=== PATIENT | female | born 1990 | race Hispanic/Latino ===

== ENCOUNTER 2017-07-24 12:54 | Emergency (ER) | payer MEDICAID, OTHER ==
[2017-07-24 13:18] VITALS: BP 121/65
--- NOTE | 2017-07-24 14:12 | CR ---
EXAMINATION: Right shoulder HISTORY: Pain COMPARISON: None TECHNIQUE: 3 views FINDINGS/IMPRESSION: There is no acute osseous abnormality, dislocation, or fracture. Joint spaces an d bone mineralization appear normal.
[2017-07-24] MEDS ORDERED: Ketorolac 60 MG/2 ML SDV IM ONE (14:44)
--- NOTE | 2017-07-24 14:46 | EDM.PDOC ---
ED HPI GENERAL MEDICAL PROBLEM - General Chief Complaint: Upper Extremity Injury/Pain Stated Complaint: RIGHT SHOULDER PAIN WORK RELATED Time Seen by Provider: 07/24/17 14:30 Source of Information: Reports: Patient History Limitations: Reports: No Limitations - History of Present Illness INITIAL COMMENTS - FREE TEXT/NARRATIVE: HISTORY AND PHYSICAL: History of present illness: [Patient presents to the emergency room complaining of right shoulder pain. 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 On Sunday night she removed numerous suitcases and bags from the belly of the plane. During this process she felt a snapping and tearing sensation and pain in her right shoulder. She has had continued pain to her right posterior shoulder since Sunday. She has sensation of tightness across the back of her shoulder across her scapula. Has pain and diminished range of motion to her right arm due to shoulder pain. No numbness or tingling. No weakness in her hands. Denies fever and chills no chest pain shortness of breath or difficulty breathing. She has no other complaints or concerns at this time. Hasn't been taking much laor-aat-lumxhti medication for her symptoms. ] Review of systems: As per history of present illness and below otherwise all systems reviewed and negative. Past medical history: As per history of present illness and as reviewed below otherwise noncontributory. Surgical history: As per history of present illness and as reviewed below otherwise noncontributory. Social history: No reported history of drug or alcohol abuse. Family history: As per history of present illness and as reviewed below otherwise noncontributory. Physical exam: HEENT: Atraumatic, normocephalic. Extremities: Right shoulder is unremarkable in appearance. there is no bruising , erythema or swelling. Mildly tender with palpation over the posterior right shoulder. Diminished range of motion and pain with flexion and extension of her right upper extremity. Pain and diminished range of motion with rotation of shoulder. Neurovascular unremarkable. 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 Neurovascular intact. Neuro: Awake, alert, oriented. Cranial nerves II through XII unremarkable. Exam nonfocal. Diagnostics: [R shoulder x-ray] Therapeutics: [Toradol 60mg IM] Impression: [Right shoulder pain] Plan: [Discussed with patient that her right shoulder x-ray is completely normal. Encouraged close orthopedic follow-up. She is given a note recommending she got you with her right arm at work until she has been evaluated by the orthopedist. Tylenol and ibuprofen as needed for discomfort. Strict return precautions are reviewed with the patient she is in agreement with today's plan.] Definitive disposition and diagnosis as appropriate pending reevaluation and review of above. Right Shoulder Pain Score (Numeric/FACES): 7 - Related Data Allergies Allergy/AdvReac Type Severity Reaction Status Date / Time No Known Allergies Allergy Verified 07/24/17 13:17 Home Meds: Home Meds . [No Known Home Meds] 05/04/15 [History] . [No Known Home Meds] 11/02/15 [History] Past Medical History - Past Health History Medical/Surgical History: Denies Medical/Surgical History Other Respiratory History: REports 4 yr history of smoking, currently reporting 5 cigarettes per day Genitourinary History: Reports: UTI, Recurrent Other Genitourinary History: None for awhile, On & Off UTI's SAGGER SOAK History: Reports: None Musculoskeletal History: Reports: None Neurological History: Reports: None Psychiatric History: Reports: Anxiety Endocrine/Metabolic History: Reports: None Hematologic History: Reports: None Immunologic History: Reports: None Oncologic (Cancer) History: Reports: None Dermatologic History: Reports: None - Infectious Disease History Infectious Disease History: Reports: None - Past Surgical History Head Surgeries/Procedures: Reports: None Female Surgical History: Reports: Section Musculoskeletal Surgical History: Reports: None Social & Family History - Family History Family Medical History: Noncontributory - Tobacco Use Smoking Status *Q: Never Smoker Years of Tobacco use: 4 Second Hand Smoke Exposure: No - Caffeine Use Caffeine Use: Reports: None - Recreational Drug Use Recreational Drug Use: No Drug Use in Last 12 Months: No Review of Systems - Review of Systems Review Of Systems: ROS reveals no pertinent complaints other than HPI. ED EXAM, GENERAL - Physical Exam Exam: See Below Course - Vital Signs Last Recorded V/S: Last Vital Signs Temp 98.2 F 07/24/17 13:14 Pulse 70 07/24/17 13:14 Resp 16 07/24/17 13:14 BP 121/65 07/24/17 13:14 Pulse Ox 98 07/24/17 13:14 - Orders/Labs/Meds Meds: Medications Discontinued Medications Generic Name Dose Route Start Last Admin Trade Name Freq PRN Reason Stop Dose Admin Ketorolac Tromethamine 60 mg 07/24/17 14:44 07/24/17 14:55 Toradol IM 07/24/17 14:45 60 mg ONETIME ONE Administration Departure - Departure Time of Disposition: 14:45 Disposition: Home, Self-Care 01 Condition: Good Clinical Impression: Right shoulder pain - Discharge Information Instructions: Shoulder Pain Referrals: PCP,None [Primary Care Provider] - Forms: ED Department Discharge Additional Instructions: The following information is given to patients seen in the emergency department who are being discharged to home. This information is to outline your options for follow-up care. We provide all patients seen in our emergency department with a follow-up referral. The need for follow-up, as well as the timing and circumstances, are variable depending upon the specifics of your emergency department visit. If you don't have a primary care physician on staff, we will provide you with a referral. We always advise you to contact your personal physician following an emergency department visit to inform them of the circumstance of the visit and for follow-up with them and/or the need for any referrals to a consulting specialist. The emergency department will also refer you to a specialist when appropriate. This referral assures that you have the opportunity for follow-up care with a specialist. All of these measure are taken in an effort to provide you with optimal care, which includes your follow-up. Under all circumstances we always encourage you to contact your private physician who remains a resource for coordinating your care. When calling for follow-up care, please make the office aware that this follow-up is from your recent emergency room visit. If for any reason you are refused follow-up, please contact the [facility] emergency department at and asked to speak to the emergency department charge nurse. [facility] [address] [place] [address], [address] [place] [address] Follow-up with the orthopedist at the clinic listed above within the next week. Recommend that you may work, but not use right arm until you're evaluated by orthopedist. Perform gentle stretching to prevent stiffening of the joint. Tylenol alternating with ibuprofen as needed for discomfort. Return to ER as needed as discussed.
== END 2017-07-24 15:02 | disposition home or self-care (01) ==
LOC: MW.ED 12:54
DX: M25.511 Pain in right shoulder (principal); F41.9 Anxiety disorder, unspecified; Z87.440 Personal history of urinary (tract) infections; F17.210 Nicotine dependence, cigarettes, uncomplicated
CPT/HCPCS: 73030; 96372; 99283; J1885; 99282

== ENCOUNTER 2025-02-22 00:01 | Emergency (ER) | payer BC ==
[2025-02-22 01:54] LABS: BASOPHILS ABSOLUTE AUTO 0.06 K/uL (0.00-0.20); BASOPHILS PERCENT AUTO 0.4 % (0.0-1.0); EOSINOPHILS PERCENT AUTO 1.4 % (0.0-6.0); HEMATOCRIT 36.7 % (37.0-47.0); HEMOGLOBIN 12.7 g/dL (12.0-16.0); IMMATURE GRAN PERCENT AUTO 0.7 % (0.0-0.4); LYMPHOCYTES ABSOLUTE AUTO 2.02 K/uL (1.00-4.80); LYMPHOCYTES PERCENT AUTO 13.9 % (24.0-44.0); MEAN CORPUSCULAR HEMOGLOBIN 29.3 pg (28.0-32.0); MEAN CORPUSCULAR HGB CONC 34.6 g/dL (32.0-36.0); MEAN CORPUSCULAR VOLUME 84.8 fL (83.0-99.0); MEAN PLATELET VOLUME 9.7 fL (9.4-12.3); MONOCYTES ABSOLUTE AUTO 1.05 K/uL (0.00-0.80); MONOCYTES PERCENT AUTO 7.2 % (0.0-8.0); NEUTROPHILS ABSOLUTE AUTO 11.14 K/uL (1.80-7.70); NEUTROPHILS PERCENT AUTO 76.4 % (41.0-71.0); PLATELET COUNT,PLT 324 K/uL (150-400); RED BLOOD CELL COUNT 4.33 M/uL (4.10-5.30); WHITE BLOOD CELL COUNT,WBC 14.57 K/uL (3.9-11.3)
[2025-02-22 01:58] LABS: APPEARANCE,URINE CLEAR; BILIRUBIN,URINE NEGATIVE (NEGATIVE); COLOR,URINE YELLOW; GLUCOSE,URINE NEGATIVE (NEGATIVE); KETONES,URINE NEGATIVE (NEGATIVE); LEUKOCYTE ESTERASE,URINE MODERATE (NEGATIVE); NITRITE,URINE NEGATIVE (NEGATIVE); OCCULT BLOOD,URINE MODERATE (NEGATIVE); PH,URINE 6.5 (5.0-8.0); PROTEIN,URINE TRACE mg/dL (NEGATIVE); UROBILINOGEN,URINE 0.2 EU/dL (<2.0)
[2025-02-22 02:06] LABS: A/G RATIO 0.7 (0.9-1.6); BILIRUBIN TOTAL 0.5 mg/dL (0.2-1.0); CALCIUM 9.3 mg/dL (8.5-10.1); CARBON DIOXIDE,CO2 25.7 mmol/L (21.0-32.0); CREATININE 0.7 mg/dL (0.6-1.0); EST CRCL DRUG DOSING (CG) 95.94 mL/min; POTASSIUM,K 3.5 mmol/L (3.5-5.1); PROTEIN TOTAL,TP 7.6 g/dL (6.4-8.2)
[2025-02-22] MEDS: Sodium Chloride 0.9% 1,000 ML IV ONE (02:08)
[2025-02-22] MEDS: cefTRIAXone 1 GM in Water For Injection, Sterile 10 ML IVPUSH ONE (02:12)
[2025-02-22 02:17] LABS: BACTERIA,URINE 1+ (NEGATIVE); EPITHELIAL CELLS,URINE FEW (NONE-FEW)
[2025-02-22] MEDS: Acetaminophen/HYDROcodone 325-5 MG Tab PO ONE (04:04)
[2025-02-22 04:07] VITALS: BP 126/76; PULSE 82
== END 2025-02-22 04:06 | disposition home or self-care (01) ==
LOC: MW.ED 00:01
DX: O23.11 Infections of bladder in pregnancy, first trimester (principal); F17.210 Nicotine dependence, cigarettes, uncomplicated; E66.9 Obesity, unspecified; Z68.36 Body mass index [BMI] 36.0-36.9, adult; Z3A.13 13 weeks gestation of pregnancy
CPT/HCPCS: 36415; 80053; 81001; 85025; 87086; 96361; 96374; 99284; A9270; J0696; J7030; 87088; 87186; 99283

== ENCOUNTER 2025-08-08 20:32 | Observation (INO) | payer BC | END 2025-08-08 22:18 | disposition home or self-care (01) | LOC: MW.OB 20:32 → MW.OBCHECK 20:32 → MW.OB 20:56 → MW.OBCHECK 21:07 | PROVIDERS: ADMIT Obstetrics & Gynecology; ATTEND Obstetrics & Gynecology | DX: O36.8130 Decreased fetal movements, third trimester, not applicable or unspecified (principal); O24.410 Gestational diabetes mellitus in pregnancy, diet controlled; Z98.890 Other specified postprocedural states; Z3A.37 37 weeks gestation of pregnancy | CPT/HCPCS: 59025; G0378 ==

== ENCOUNTER 2025-08-14 11:58 | Inpatient (IN) | payer BC ==
[2025-08-14] MEDS ORDERED: Ondansetron 4 MG/2 ML SDV ONE (12:05)
[2025-08-14] MEDS ORDERED: dexmedeTOMIDine HCl 200 MCG/2 ML SDV ONE (12:05)
[2025-08-14] MEDS ORDERED: ePHEDrine 50 MG/ML SDV ONE (12:05)
[2025-08-14] MEDS ORDERED: Dexamethasone 4 MG/ML 5 ML MDV ONE (12:05)
[2025-08-14] MEDS ORDERED: Oxytocin 10 Units/1 ML SDV ONE (12:05)
[2025-08-14] MEDS ORDERED: Phenylephrine 1% 10 MG/ML SDV ONE (12:05)
[2025-08-14] MEDS ORDERED: Midazolam 1 MG/ML 2 ML SDV ONE (12:06)
[2025-08-14] MEDS ORDERED: Citric Acid/Sodium Citrate Solution 30 ML Cup PO ONE (12:06)
[2025-08-14] MEDS ORDERED: fentaNYL 100 MCG/2 ML SDV ONE (12:06)
[2025-08-14] MEDS ORDERED: Sodium Chloride 0.9% 2.5 ML Syringe FLUSH PRN (12:06)
[2025-08-14] MEDS ORDERED: Morphine PF 10 MG/10 ML SDV ONE (12:06)
[2025-08-14] MEDS ORDERED: Sodium Chloride 0.9% 10 ML Syringe FLUSH PRN (12:06)
[2025-08-14] MEDS ORDERED: Ropivacaine 0.5% 5 MG/ML 30 ML SDV ONE (12:08)
[2025-08-14 12:13] LABS: MEAN PLATELET VOLUME 10.2 fL (9.4-12.3); NRBC ABSOLUTE 0.02 K/uL (0.00-0.02); NRBC PERCENT 0.2 /100WBC (0.0-0.2); PLATELET COUNT,PLT 301 K/uL (150-400); RED BLOOD CELL COUNT 4.48 M/uL (4.10-5.30); WHITE BLOOD CELL COUNT,WBC 8.20 K/uL (3.9-11.3)
[2025-08-14] MEDS ORDERED: Oxytocin/0.9 % Sodium Chloride 30 UNIT/500 ML BAG IV SCH (12:15)
[2025-08-14] MEDS: Lactated Ringers 1,000 ML IV SCH (12:19)
[2025-08-14] MEDS ORDERED: Ondansetron 4 MG/2 ML SDV IVPUSH PRN (16:23)
[2025-08-14] MEDS ORDERED: Oxytocin 10 Units/1 ML SDV IM PRN (16:23)
[2025-08-14] MEDS ORDERED: diphenhydrAMINE 50 MG/ML SDV IVPUSH PRN (16:23)
[2025-08-14] MEDS ORDERED: Naloxone 0.4 MG/ML SDV IVPUSH PRN (16:28)
[2025-08-14] MEDS ORDERED: Lactated Ringers 1,000 ML IV SCH (16:30)
[2025-08-14] MEDS: Ketorolac 30 MG/ML SDV IVPUSH SCH (17:36)
[2025-08-15] MEDS: Acetaminophen/oxyCODONE 325-5 MG Tab PO PRN ×2 (14:23→18:32)
[2025-08-15] MEDS: Lanolin 100% Cream 7 GM Tube TOP PRN (18:32)
[2025-08-16] MEDS: Acetaminophen/HYDROcodone 325-10 MG Tab PO PRN (08:24)
[2025-08-16 15:17] VITALS: BP 110/64; PULSE 71
[2025-08-17] MEDS ORDERED: Prenatal Multivitamin with Calcium/Folic Acid/Iron Tab PO SCH (09:00)
== END 2025-08-16 15:55 | disposition home or self-care (01) | DRG 540 ==
LOC: MW.OB 11:58 → MW.OBCHECK 11:58 → MW.OB 12:06
PROVIDERS: ADMIT Obstetrics & Gynecology Gynecology; ATTEND Obstetrics & Gynecology Obstetrics
PROC: 10D00Z1 Extraction of Products of Conception, Low, Open Approach (ICD-10-PCS; principal; 2025-08-14)
DX: O34.211 Maternal care for low transverse scar from previous cesarean delivery (principal); O24.420 Gestational diabetes mellitus in childbirth, diet controlled; O99.02 Anemia complicating childbirth; D64.9 Anemia, unspecified; Z37.0 Single live birth; Z3A.38 38 weeks gestation of pregnancy
CPT/HCPCS: 01961; 36415; 59025; 59514; 64999; 82947; 85014; 85018; 85027; 86592; 86850; 86900; 86901; A9270-GY; J0690; J1100; J1885; J2250; J2274; J2371; J2405; J2590; J2795; J3010; J3490; J7120